=== PATIENT | male | born 1935 | race Caucasian/White ===

== ENCOUNTER 2016-11-13 20:54 | Emergency (ER) | payer MEDICARE ==
[2016-11-13] MEDS ORDERED: Acetaminophen TAB* 325 MG PO ONE (22:38)
[2016-11-13] MEDS ORDERED: Cyclobenzaprine TAB* 10 MG PO ONE (22:39)
[2016-11-13 23:54] VITALS: BP 148/70
--- NOTE | 2016-11-14 00:17 | ED ---
Ciaran Koch SooYoung, scribed for Silvia Will MD on 11/13/16 at 2230 . Complex/Multi-Sys Presentation - HPI Summary HPI Summary: An 81 y/o M presents to ED with c/o acute sore throat onset three days ago. Associated sx: dysphagia, hoarseness, stiff neck. Denies fever. States feeling well otherwise. Pt was mowing the lawn recently, denies fall or spraining his neck. He denies being around anyone ill recently. Ice/heat did not alleviate the neck stiffness. Pert PMHx: muscle spasms, neck pain. Has not taken OTC meds for sx. PCP is Dr. Santana, and Dr. Quiroga, cardio. He sees Dr. Quiroga for a "leaky valve". Pt takes baby aspirin daily. - History Of Current Complaint Chief Complaint: EDGeneral Time Seen by Provider: 11/13/16 22:25 Hx Obtained From: Patient, Family/Crm Specialist - Onset/Duration: Gradual Onset, Lasting Days - three days, Still Present Timing: Constant Severity Currently: Mild - rates pain as 0/10 Severity Initially: Mild Location: Pain At: - posterior neck Character: Dull Aggravating Factor(s): nothing Alleviating Factor(s): nothing Associated Signs And Symptoms: Positive: Other - pos: sore throat, stiff neck, dysphagia, hoarseness. Negative: Headache, Fever, Recent Trauma, Remote Trauma - Allergies/Home Medications Allergies/Adverse Reactions: Allergies Allergy/AdvReac Type Severity Reaction Status Date / Time No Known Allergies Allergy Verified 11/13/16 20:57 PMH/Surg Hx/FS Hx/Imm Hx Previously Healthy: No Endocrine/Hematology History: Denies: Hx Bone Marrow Disease, Hx Diabetes, Hx Sickle Cell Disease, Hx Thyroid Disease, Hx Anemia Cardiovascular History: Reports: Hx Angina, Hx Coronary Artery Disease, Hx Hypercholesterolemia, Hx Hypertension, Hx Myocardial Infarction, Hx Valvular Heart Disease, Other Cardiovascular Problems/Disorders - OPEN HEART SURGERY- REPAIR HEART VALVE, 2013, [place] Denies: Hx Pacemaker/ICD Respiratory History: Denies: Hx Asthma, Hx Sleep Apnea GI History: Denies: Hx Crohn's Disease, Hx Gastroesophageal Reflux Disease, Hx Irritable Bowel, Other GI Disorders History: Denies: Hx Kidney Infection, Hx Kidney Stones Musculoskeletal History: Reports: Hx Arthritis - BACK, Other Musculoskeletal History - BROKE RIGHT ANKLE- ABOUT 1 YEAR AGO, DR. 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 Hx Anesthesia Reactions: No Infectious Disease History: No Infectious Disease History: Denies: Traveled Outside the [place] in Last 30 Days - Family History Known Family History: Positive: Cardiac Disease - father - Social History Occupation: Retired Lives: With Family Alcohol Use: Rare Hx Substance Use: No Substance Use Type: Reports: None Hx Tobacco Use: Yes Smoking Status (MU): Former Smoker Review of Systems Negative: Fever Positive: Sore Throat - and hoarseness, Other - pos: dysphagia Cardiovascular: Negative Respiratory: Negative Gastrointestinal: Negative Positive: Other - pos: neck pain/stiffness Skin: Negative Neurological: Negative Psychological: Normal All Other Systems Reviewed And Are Negative: Yes Physical Exam Triage Information Reviewed: Yes Vital Signs On Initial Exam: Initial Vitals Temp Pulse Resp BP Pulse Ox 99.6 F 94 18 152/77 97 11/13/16 20:57 11/13/16 20:57 11/13/16 20:57 11/13/16 20:57 11/13/16 20:57 Vital Signs Reviewed: Yes Appearance: Positive: No Pain Distress, Well-Nourished, Ill-Appearing - mild Skin: Positive: Warm, Skin Color Reflects Adequate Perfusion Head/Face: Positive: Normal Head/Face Inspection Eyes: Positive: Conjunctiva Clear ENT: Positive: Hearing grossly normal, Pharynx normal, Muffled/hoarse voice - minimal. Negative: Pharyngeal erythema, Nasal congestion, Nasal drainage, TMs normal, TM bulging, Tonsillar swelling, Tonsillar exudate Neck: Positive: Supple, No Lymphadenopathy, Tenderness @ - bilat trapezius Respiratory/Lung Sounds: Positive: Clear to Auscultation, Breath Sounds Present Cardiovascular: Positive: RRR, Pulses are Symmetrical in both Upper and Lower Extremities. Negative: Murmur, Leg Edema Left, Leg Edema Right Musculoskeletal: Positive: Strength/ROM Intact Neurological: Positive: Sensory/Motor Intact, Alert, Oriented to Person Place, Time, Normal Gait, Speech Normal, Other - neg Kernig's and Brudzinski. Negative : Facial Droop, Focal Deficit @, Slurred Speech Psychiatric: Positive: Normal - Amber Coma Scale Coma Scale Total: 15 Diagnostics - Vital Signs Vital Signs Temp Pulse Resp BP Pulse Ox 11/13/16 20:57 99.6 F 94 18 152/77 97 - Laboratory Lab Results: Lab Results 11/13/16 Range/Units 22:36 Group A Strep Rapid Negative (Negative) Lab Statement: Any lab studies that have been ordered have been reviewed, and results considered in the medical decision making process. Re-Evaluation - Re-Evaluation First Eval Re-Evaluation Time: 23:00 Change: Improved - pain relieved with tylenol, cyclobenzaprine and soft cervical collar Complex Multi-Symp Course/Dx Course Of Treatment: Pt is an 81 y/o M presenting with acute sore throat onset three days ago. Associated sx: dysphagia, hoarseness, stiff neck. Denies fever. States feeling well otherwise. Pt mowed the lawn recently, denies fall or spraining his neck. He denies being around anyone ill recently. Ice/heat did not alleviate the neck stiffness. Pert PMHx: muscle spasms, neck pain. Has not taken OTC meds for sx. Pt takes baby aspirin daily. Pt given Flexeril, Tylenol in ED. Strep test is negative. Will be treated as cervical strain and advised to follow up if pain persists or worsens. - Diagnoses Differential Diagnoses/HQI/PQRI: Metabolic Abnormality, Other - strep, lymphadenopathy, meningitis Provider Diagnoses: Cervical strain, acute Discharge - Discharge Plan Condition: Stable Disposition: HOME Discharge Disposition Comment: SO at shift change to Dr. Giles. Prescriptions: Cyclobenzaprine TAB* [Flexeril 10 MG TAB*] 10 mg PO BID PRN #12 tab MDD 2 PRN Reason: Pain Patient Education Materials: Cervical Strain (ED), Pharyngitis (ED) Referrals: Guy Willams MD [Primary Care Provider] - 2 Days Additional Instructions: You were given one dose of the muscle relaxant cyclobenzaprine with some relief. You were also given tylenol 650mg orally at 10:30pm. You may take tylenol 650mg every four hours as needed for pain. You may take the cyclobenzaprine twice a day as needed for pain. A prescription for this was sent to the [facility] in [place]. You may pick it up tomorrow. You were also given a soft cervical collar to wear for your comfort. Follow up with your doctor, Dr. Willams in 1-2 days if no improvement. Your strep test was negative today. Return to the ER if you have any new or worsening symptoms. The documentation as recorded by the Ciaran marie SooYoung accurately reflects the service I personally performed and the decisions made by me, Silvia Will MD.
--- NOTE | 2016-11-14 01:51 | UC ---
Progress - Progress Note Progress Note: The physician geriatric personal care aide tab in [facility] sent me a message that pt's RX failed to transmit. I called [facility] and left a verbal for cyclobenzaprine 10mg po bid prn #12 with no refills at 0145am 11/14/16. Re-Evaluation - Re-Evaluation First Eval Re-Evaluation Time: 23:00 Change: Improved - pain relieved with tylenol, cyclobenzaprine and soft cervical collar
== END 2016-11-13 23:30 | disposition home or self-care (01) ==
LOC: ED 20:54
DX: S16.1XXA Strain of muscle, fascia and tendon at neck level, initial encounter (principal); X58.XXXA Exposure to other specified factors, initial encounter; Y93.9 Activity, unspecified; Y92.9 Unspecified place or not applicable; J02.9 Acute pharyngitis, unspecified; I25.119 Atherosclerotic heart disease of native coronary artery with unspecified angina pectoris; I10 Essential (primary) hypertension; E78.00 Pure hypercholesterolemia, unspecified; I25.2 Old myocardial infarction; Z95.2 Presence of prosthetic heart valve
CPT/HCPCS: 87651; 99282; A9270-GY

== ENCOUNTER 2019-04-24 08:38 | Inpatient (IN) | payer MEDICARE ==
--- OUTSIDE RECORDS SUMMARY | 2019-04-24 09:01 | XMS REPORT | Continuity of Care Document ---
:1935 External Reference #:[id number] Author Name Michelle Knutson PA-C Address [address] [place] [address] Care Team Providers Name Role Phone Guy Willams M.D. - Family Care Team Information Shear Tender Medicine Problems Active Problems Provider Date Impacted cerumen Preston York MD Onset: 05/01/2011 Cholesteatoma of external ear Preston York MD Onset: 05/01/2011 Social History Type Date Description Comments Sex Unknown Tobacco Use Start: Unknown End: Former Cigarette Smoker for 45 years Unknown Packs Daily 1 Tobacco Use Start: Unknown Never Smoked Cigars Tobacco Use Start: Unknown End: Former Pipe Smoker, Smoked 2 Unknown Pipes Daily Smokeless Tobacco Never Used Smokeless Tobacco ETOH Use Denies alcohol use Tobacco Use Start: Unknown End: Patient is a former smoker Unknown Allergies, Adverse Reactions, Alerts Description No Known Drug Allergies Medications Active Medications SIG Qnty Indications Ordering Provider Date Aspirin Enteric Coated once daily Guy Willams 02/28/2005 81mg Joleen Evans Calcium + D once daily Self Lisinopril 1 by mouth every Guy Willams 2.5mg Tablets erich Evans M.D. Atorvastatin Calcium Jonathan N.PShiar Plummer 20mg Tablets Metoprolol Tartrate Preston Quiroga 50mg M.DKavitha Tablets Immunizations CPT Code Status Date Vaccine Lot # [id number] Given 03/22/2014 Influenza Virus Vaccine, 3 Years Of Age And Above, Intramuscular 36632 Given Unknown Prevnar 13 For Intramuscular Use Vital Signs Date Vital Result Comment 03/07/2019 8:32am Weight 174.00 lb Weight 78.926 kg Height 67 inches 5'7" Height in cm's 170.2 cm BMI (Body Mass Index) 27.2 kg/m2 09/03/2018 8:44am Weight 174.00 lb Weight 78.926 kg Height 67 inches 5'7" Height in cm's 170.2 cm BMI (Body Mass Index) 27.2 kg/m2 Results Description No Information Available Procedures Date Code Description Status 03/07/2019 75219 Debridement Of Mastoid Cavity, Simple Completed Medical Devices Description No Information Available Encounters Description No Information Available Assessments Date Code Description Provider 03/07/2019 H61.23 Impacted cerumen, bilateral Michelle Knutson PA-C Plan of Treatment Future Appointment(s):09/06/2019 8:30 am - Michelle Knutson PA-C at [place],After - KURTIS [id number] Impacted cerumen, bilateral Functional Status Description No Information Available Mental Status Description No Information Available Referrals Description No Information Available
--- NOTE | 2019-04-24 09:15 | ED ---
Complex/Multi-Sys Presentation - HPI Summary HPI Summary: Pt is an 83 yr old male [facility] c/o coughing and fever beginning 2 days [facility] OILER. 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 He rates his current pain severity a 0/10. No aggravating or alleviating factors noted. He also reports congestion, body aches, rhinorrhea, and body ache but denies sore throat, vomiting, diarrhea, dysuria, or rash. - History Of Current Complaint Chief Complaint: EDFluSymptoms Time Seen by Provider: 04/24/19 08:53 Hx Obtained From: Patient Onset/Duration: Sudden Onset, Lasting Days, Still Present Timing: Constant, Days Severity Currently: None Severity Initially: Mild Aggravating Factor(s): nothing Alleviating Factor(s): nothing Associated Signs And Symptoms: Positive: Cough, Fever, Other - pos - body aches , congestion, rhinnorhea - Allergies/Home Medications Allergies/Adverse Reactions: Allergies Allergy/AdvReac Type Severity Reaction Status Date / Time No Known Allergies Allergy Verified 04/24/19 10:22 Home Medications: Home Medications Aspirin EC TAB* [Ecotrin EC Low Dose 81 MG*] 81 mg PO DAILY 04/24/19 [History Confirmed 04/24/19] Atorvastatin* [Lipitor*] 40 mg PO QPM 04/24/19 [History Confirmed 04/24/19] PMH/Surg Hx/FS Hx/Imm Hx Endocrine/Hematology History: Denies: Hx Bone Marrow Disease, Hx Diabetes, Hx Sickle Cell Disease, Hx Thyroid Disease, Hx Anemia Cardiovascular History: Reports: Hx Angina, Hx Coronary Artery Disease, Hx Hypercholesterolemia, Hx Hypertension, Hx Myocardial Infarction, Hx Valvular Heart Disease, Other Cardiovascular Problems/Disorders - OPEN HEART SURGERY- REPAIR HEART VALVE, 2013, [place] Denies: Hx Pacemaker/ICD Respiratory History: Denies: Hx Asthma, Hx Sleep Apnea GI History: Denies: Hx Crohn's Disease, Hx Gastroesophageal Reflux Disease, Hx Irritable Bowel, Other GI Disorders History: Denies: Hx Kidney Infection, Hx Kidney Stones Musculoskeletal History: Reports: Hx Arthritis - BACK, Other Musculoskeletal History - BROKE RIGHT ANKLE- ABOUT 1 YEAR AGO, DR. 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 Negative: Sore Throat Positive: Cough Negative: Vomiting, Diarrhea Negative: dysuria Musculoskeletal: Other - pos - body ache Negative: Rash All Other Systems Reviewed And Are Negative: Yes Physical Exam - Summary Physical Exam Summary: Constitutional: Well-developed, Well-nourished, Alert. (-) Distressed Skin: Warm, Dry HENT: Normocephalic; Atraumatic Eyes: Conjunctiva normal Neck: Musculoskeletal ROM normal neck. (-) JVD, (-) Stridor, (-) Tracheal deviation Cardio: Rhythm regular, rate normal, Heart sounds normal; Intact distal pulses; Radial pulses are 2+ and symmetric. (-) Murmur Pulmonary/Chest wall: Effort normal. (-) Respiratory distress, (-) Wheezes, (-) Rales Abd: Soft, (-) tenderness, (-) Distension, (-) Guarding, (-) Rebound Musculoskeletal: (-) Edema Lymph: (-) Cervical adenopathy Neuro: Alert, Oriented x3 Psych: Mood and affect Normal Triage Information Reviewed: Yes Vital Signs On Initial Exam: Initial Vitals Temp Pulse Resp BP Pulse Ox 100.9 F 95 16 157/69 94 04/24/19 08:48 04/24/19 08:48 04/24/19 08:48 04/24/19 08:48 04/24/19 08:48 Vital Signs Reviewed: Yes Procedures - Sedation Patient Received Moderate/Deep Sedation with Procedure: No Diagnostics - Vital Signs Vital Signs Temp Pulse Resp BP Pulse Ox 04/24/19 09:03 91 156/71 91 04/24/19 09:02 93 92 04/24/19 08:48 100.9 F 95 16 157/69 94 - Laboratory Result Diagrams: 04/24/19 09:36 04/24/19 09:36 Lab Statement: Any lab studies that have been ordered have been reviewed, and results considered in the medical decision making process. Complex Multi-Symp Course/Dx Course Of Treatment: Patient is here with generalized weakness requiring a wheelchair to be taken back to the room which is atypical for him. Patient is noted to be borderline hypoxemic upon arrival with a O2 saturation 91%. Patient had blood tests performed showed no leukocytosis. Patient has a mildly elevated lactate of 2.1. Patient's culture sent. Patient negative chest x- ray. Patient was positive for influenza. Given patient's age, generalized weakness, borderline hypoxemia, patient was admitted to the internal medicine service after receiving Tamiflu here. - Diagnoses Provider Diagnoses: Influenza, Generalized weakness, Hypoxia - Physician Notifications Discussed Care Of Patient With: Cari Alcaraz - Dr. Alcaraz will admit the pt to [facility] Time Discussed With Above Provider: 10:27 Instructed by Provider To: Admit As Inpatient Discharge ED - Sign-Out/Discharge Documenting (check all that apply): Patient Departure - admit - Discharge Plan Condition: Stable Disposition: ADMITTED TO [facility] Referrals: Guy Willams MD [Primary Care Provider] - - Billing Disposition and Condition Condition: STABLE Disposition: Admitted to [facility] - Attestation Statements Document Initiated by Jose: Yes Documenting Scribe: Mathieu Angeles Provider For Whom Jose is Documenting (Include Credential): Wilton Naranjo MD Scribe Attestation: Mathieu Koch, scribed for Wilton Naranjo MD on 04/24/19 at 1038. Scribe Documentation Reviewed: Yes Provider Attestation: The documentation as recorded by the Mathieu marie accurately reflects the service I personally performed and the decisions made by , Wilton Naranjo MD Status of Scribe Document: Viewed
[2019-04-24] MEDS ORDERED: Acetaminophen TAB* 325 MG PO ONE (09:18)
[2019-04-24 09:38] LABS: Influenza A Molecular POSITIVE (Negative)
[2019-04-24] MEDS ORDERED: Oseltamivir CAP* 75 MG CAP PO ONE (09:44)
[2019-04-24 09:51] LABS: ABS Lymphocytes 0.3 10^3/ul (1.0-4.8); ABS Monocytes 0.4 10^3/ul (0-0.8); ABS Neutrophils 4.9 10^3/ul (1.5-7.7); Hematocrit 43 % (42-52); Hemoglobin 14.6 g/dL (14.0-18.0); Lymphocyte % 4.7 %; Mean Corpuscular HGB Conc 34 g/dL (31-36); Mean Corpuscular Hemoglobin 30 pg (27-31); Mean Corpuscular Volume 89 fL (80-94); Mean Platelet Volume 7.8 fL (7.4-10.4); Platelet Count 117 10^3/uL (150-450); Red Cell Distribution Width 13 % (10-15); White Blood Count 5.6 10^3/uL (3.5-10.8)
[2019-04-24 10:07] LABS: Albumin 3.8 g/dL (3.2-5.2); Albumin/Globulin Ratio 1.3 (1-3); BUN/Creatinine Ratio 11.8 (8-20); C Reactive Protein 16.08 mg/L (<8.01); Calcium 9.4 mg/dL (8.6-10.3); EGFR African American 60.6 (>60); Globulin 2.9 g/dL (2-4); Potassium 4.5 mmol/L (3.5-5.0); Total Bilirubin 1.1 mg/dL (0.2-1.0); Total Protein 6.7 g/dL (6.4-8.9)
[2019-04-24] MEDS ORDERED: Ibuprofen TAB* 600 MG PO ONE (10:39)
[2019-04-24] MEDS ORDERED: NS 0.9% 1000 ML** 1,000 ML IV ONE (10:39)
[2019-04-24] MEDS ORDERED: NS 0.9% IV ONE (11:17)
--- NOTE | 2019-04-24 11:28 | PN ---
Sepsis Event Evaluation Date of Evaluation: 04/24/19 Current Stage of Sepsis: Severe Sepsis Vital Signs - Last 12 Hours: Vital Signs - 12 hr Temp Pulse Resp BP Pulse Ox 04/24/19 11:17 99.8 F 04/24/19 11:03 90 113/60 91 04/24/19 11:00 88 91 04/24/19 10:38 101.9 F 04/24/19 10:35 99 128/68 92 04/24/19 10:33 99 79/60 93 04/24/19 10:03 94 120/65 91 04/24/19 10:00 93 92 04/24/19 09:25 100.7 F 04/24/19 09:03 91 156/71 91 04/24/19 09:02 93 92 04/24/19 08:48 100.9 F 95 16 157/69 94 Lactic Acid: 04/24/19 09:37 Lactic Acid 2.1 H* - Cardiopulmonary Exam Capillary Refill: Immediate Respiratory: Symmetrical Chest Expansion and Respiratory Effort, Clear to Auscultation Cardiovascular: RRR - Normal S1 and S2, +SM - Peripheral Pulse Exam Radial Pulses: Bilateral Normal - Skin Exam Skin Exam: Normal Turgor - Amber Coma Scale Best Eye Response: 4 - Spontaneous Best Motor Response: 6 - Obeys Commands Best Verbal Response: 5 - Oriented Coma Scale Total: 15 Assess/Plan/Problems-Billing Assessment: Mr Farah is an 83yo M with PMH of CAD s/p PR s/p stent, s/p 1 vessel CABG and Mitral valve repair in 2013 at [facility], with post op Afib; 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 Continue current management with IVF, Tamiflu.
--- NOTE | 2019-04-24 13:02 | ADMNOTE ---
Subjective Date of Service: 04/24/19 Interval History: PCP: Dr Willams Spouting Installer: Dr Quiroga CC: "I'm weak" HPI: Mr Farah is an 83yo M with PMH of Afib, mitral regurgitation, CAD, HTN, HLD , who presented to ED with c/o weakness. Patient states he started feeling ill a couple day ago, with bodyaches, malaise , cough and rhinorrhea. He initially thought his symptoms were secondary to recent medication changes, but he also developed fever, so decided to come to ED. He denies chest pain, palpitations, N/V/D/. Family History: Findings - Mother of heart attack and father in a car accident Social History: Findings - Patient was a smoker age 9 to 50, 1 pack per day, quit when he had a heart attack. Denies alcohol or drug use. 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 Objective Active Medications: Acetaminophen (Tylenol Tab*) 650 mg PO Q6H PRN PRN Reason: MILD PAIN or TEMP > 100.4 Aspirin (Aspirin Ec Tab*) 81 mg PO DAILY [facility] Atorvastatin Calcium (Lipitor*) 40 mg PO QPM [facility] Heparin Sodium (Porcine) (Heparin Vial(*)) 5,000 units SUBCUT Q8HR [facility] Sodium Chloride (Ns 0.9% 1000 Ml) 1,000 mls @ 100 mls/hr IV PER RATE [facility] Metoprolol Tartrate (Lopressor Tab*) 50 mg PO DAILY [facility] Oseltamivir Phosphate (Tamiflu Susp 30 Mg Dose*) 30 mg PO BID [place] Stop: 04/28/19 21:01 Vital Signs - 8 hr 04/24/19 04/24/19 04/24/19 08:48 09:02 09:03 Temperature 100.9 F Pulse Rate 95 93 91 Respiratory 16 Rate Blood Pressure 157/69 156/71 (mmHg) O2 Sat by Pulse 94 92 91 Oximetry 04/24/19 04/24/19 04/24/19 09:25 10:00 10:03 Temperature 100.7 F Pulse Rate 93 94 Respiratory Rate Blood Pressure 120/65 (mmHg) O2 Sat by Pulse 92 91 Oximetry 04/24/19 04/24/19 04/24/19 10:33 10:35 10:38 Temperature 101.9 F Pulse Rate 99 99 Respiratory Rate Blood Pressure 79/60 128/68 (mmHg) O2 Sat by Pulse 93 92 Oximetry 04/24/19 04/24/19 04/24/19 11:00 11:03 11:17 Temperature 99.8 F Pulse Rate 88 90 Respiratory Rate Blood Pressure 113/60 (mmHg) O2 Sat by Pulse 91 91 Oximetry 04/24/19 04/24/19 04/24/19 11:33 12:00 12:03 Temperature 99.8 F Pulse Rate 81 79 80 Respiratory 20 Rate Blood Pressure 114/55 115/52 (mmHg) O2 Sat by Pulse 93 89 89 Oximetry Oxygen Devices in Use Now: None Appearance: Pleasant elderly gentleman lying in bed in NAD, appears to be very tired Eyes: No Scleral Icterus Ears/Nose/Mouth/Throat: Mucous Membranes Moist Neck: Trachea Midline Respiratory: Symmetrical Chest Expansion and Respiratory Effort, Clear to Auscultation Cardiovascular: RRR - Normal S1 and S2, +SM Abdominal: NL Sounds; No Tenderness; No Distention Extremities: No Edema Neurological: Alert and Oriented x 3, NL Muscle Strength and Tone Result Diagrams: 04/24/19 09:36 04/24/19 09:36 Additional Lab and Data: Laboratory Tests 04/24/19 04/24/19 04/24/19 09:06 09:36 09:36 WBC 5.6 Hgb 14.6 Hct 43 Plt Count 117 L Sodium 136 Potassium 4.5 Chloride 100 L Carbon Dioxide 27 BUN 16 Creatinine 1.36 H Glucose 179 H Lactic Acid Calcium 9.4 Total Bilirubin 1.10 H AST 19 ALT 19 Alkaline Phosphatase 86 Total Creatine Kinase 260 H C-Reactive Protein 16.08 H Influenza A (Rapid) Positive A 04/24/19 09:37 WBC Hgb Hct Plt Count Sodium Potassium Chloride Carbon Dioxide BUN Creatinine Glucose Lactic Acid 2.1 H* Calcium Total Bilirubin AST ALT Alkaline Phosphatase Total Creatine Kinase C-Reactive Protein Influenza A (Rapid) Diagnostic Imaging: CHEST PA & LAT 2 VWS IMPRESSION: HYPERINFLATION, CONSISTENT WITH COPD. NO ACTIVE CARDIOPULMONARY DISEASE. 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 - Patient Problems (1) Severe sepsis Comment: - Met sepsis criteria with tachycardia, fever, and mild lactic acidosis. - Received IVF, will check serial LA. - Antibiotics not indicated as source is viral (Flu A). (2) Influenza A Comment: - Continue Tamiflu and supportive care. (3) Thrombocytopenia Comment: - Secondary to Influenza - monitor. (4) CAD (coronary artery disease) Comment: - Stable - continue Aspirin, Atorvastatin, and Metoprolol. (5) HTN (hypertension) Comment: - Controlled - continue Metoprolol and hold Lisinopril. (6) DVT prophylaxis Comment: - SQ heparin (7) Full code status Comment: - Patient wishes to d/w his before signing MOLST to be DNR. He remains Full code at this time. Status and Disposition: Approximately 50 minutes were spent with patient's interview, medical records review, and physical examination; more than half of this time was spent face-to- face with patient and coordination of care.
[2019-04-24] MEDS: NS 0.9% 1000 ML** 1,000 ML IV SCH (13:12)
[2019-04-24] MEDS: Heparin VIAL(*) 5000 UNITS/ML VIAL (FIVE THOUSAND) SUBCUT SCH ×2 (13:12→22:05)
[2019-04-24] MEDS: Atorvastatin* 40 MG TAB PO SCH (17:20)
[2019-04-24] MEDS: Oseltamivir SUSP 30 MG dose* 30 MG/5 ML ORAL.SYRIN PO SCH (22:05)
[2019-04-24] MEDS: Acetaminophen TAB* 325 MG PO PRN (23:30)
[2019-04-25] MEDS: NS 0.9% 1000 ML** 1,000 ML IV SCH (01:48)
[2019-04-25 04:47] LABS: Hematocrit 39 % (42-52); Hemoglobin 13.4 g/dL (14.0-18.0); Mean Corpuscular HGB Conc 34 g/dL (31-36); Mean Corpuscular Hemoglobin 31 pg (27-31); Mean Corpuscular Volume 90 fL (80-94); Mean Platelet Volume 7.7 fL (7.4-10.4); Platelet Count 100 10^3/uL (150-450); Red Blood Count 4.35 10^6 /uL (4.18-5.48); Red Cell Distribution Width 13 % (10-15); White Blood Count 4.4 10^3/uL (3.5-10.8)
[2019-04-25 05:03] LABS: BUN/Creatinine Ratio 12.7 (8-20); Calcium 8.2 mg/dL (8.6-10.3); EGFR African American 71.3 (>60); Potassium 4.2 mmol/L (3.5-5.0)
[2019-04-25 05:10] LABS: ABS Lymphocytes 0.5 10^3/ul (1.0-4.8); ABS Monocytes 0.4 10^3/ul (0-0.8); ABS Neutrophils 3.4 10^3/ul (1.5-7.7); Eosinophil % 0.1 %; Lymphocyte % 12.4 %; Nucleated Red Blood Cells % 0.1
[2019-04-25] MEDS: Heparin VIAL(*) 5000 UNITS/ML VIAL (FIVE THOUSAND) SUBCUT SCH ×3 (06:06→21:04)
[2019-04-25 06:41] LABS: Urine Appearance Clear; Urine Bilirubin Negative (Negative); Urine Blood 2+ (Negative); Urine Color Yellow; Urine Glucose Negative (Negative); Urine Ketones 1+ (Negative); Urine Nitrite Negative (Negative); Urine Protein 2+(100 mg/dL) (Negative); Urine Specific Gravity 1.018 (1.010-1.030); Urine Urobilinogen Negative (Negative)
[2019-04-25 06:47] LABS: Urine Bacteria Absent (Absent); Urine Red Blood Cell Trace(0-2/hpf) (Absent); Urine White Blood Cell Trace(0-5/hpf) (Absent)
[2019-04-25] MEDS: Metoprolol Tartrate TAB* 50 mg PO SCH (09:14)
[2019-04-25] MEDS: Aspirin EC TAB* 81 MG TAB.EC PO SCH (09:14)
[2019-04-25] MEDS: Oseltamivir SUSP 30 MG dose* 30 MG/5 ML ORAL.SYRIN PO SCH (09:14)
[2019-04-25] MEDS: Acetaminophen TAB* 325 MG PO PRN (13:29)
--- NOTE | 2019-04-25 15:21 | PN ---
Subjective Date of Service: 04/25/19 Interval History: Patient is feeling better. Patient states that his breathing has improved. Patient states that he no longer has subjective fevers or muscle aches. Patient denies N/V, abdominal pain, diarrhea, or other pain. When ambulating around the unit, patient became very SOB and desaturated down to 86%. Family History: Findings - Mother of heart attack and father in a car accident Social History: Findings - Patient was a smoker age 9 to 50, 1 pack per day, quit when he had a heart attack. Denies alcohol or drug use. 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%, HTN, HLD, CKD stage 3 Objective Active Medications: Acetaminophen (Tylenol Tab*) 650 mg PO Q6H PRN PRN Reason: MILD PAIN or TEMP > 100.4 Last Admin: 04/25/19 13:29 Dose: 650 mg Aspirin (Aspirin Ec Tab*) 81 mg PO DAILY [facility] Last Admin: 04/25/19 09:14 Dose: 81 mg Atorvastatin Calcium (Lipitor*) 40 mg PO QPM [facility] Last Admin: 04/24/19 17:20 Dose: 40 mg Heparin Sodium (Porcine) (Heparin Vial(*)) 5,000 units SUBCUT Q8HR [facility] Last Admin: 04/25/19 13:29 Dose: 5,000 units Metoprolol Tartrate (Lopressor Tab*) 50 mg PO DAILY [facility] Last Admin: 04/25/19 09:14 Dose: 50 mg Oseltamivir Phosphate (Tamiflu Cap*) 30 mg PO BID [facility] Stop: 04/28/19 21:01 Vital Signs - 8 hr 04/25/19 04/25/19 04/25/19 08:00 09:35 11:15 Temperature 101.9 F Pulse Rate 87 Respiratory 20 Rate Blood Pressure 152/74 (mmHg) O2 Sat by Pulse 95 86 92 Oximetry Oxygen Devices in Use Now: Nasal Cannula Appearance: Patient is an 83yo male who appears stated age and is sitting in the bed in [facility]. Eyes: No Scleral Icterus, PERRLA Ears/Nose/Mouth/Throat: NL Teeth, Lips, Gums, Clear Oropharnyx, Mucous Membranes Moist Neck: NL Appearance and Movements; NL JVP, Trachea Midline Respiratory: Symmetrical Chest Expansion and Respiratory Effort, - - Slight Rales in B/L Lower lobes. Cardiovascular: NL Sounds; No Murmurs; No JVD, RRR, No Edema Abdominal: NL Sounds; No Tenderness; No Distention, No Hepatosplenomegaly Lymphatic: No Cervical Adenopathy Extremities: No Edema, No Clubbing, Cyanosis Skin: No Rash or Ulcers, No Nodules or Sclerosis Neurological: Alert and Oriented x 3, NL Sensation, NL Gait, NL Muscle Strength and Tone, - - CN II-XII intact. Result Diagrams: 04/25/19 04:39 04/25/19 04:39 Additional Lab and Data: Laboratory Tests 04/24/19 04/24/19 04/24/19 09:06 09:36 09:36 WBC 5.6 Hgb 14.6 Hct 43 Plt Count 117 L Sodium 136 Potassium 4.5 Chloride 100 L Carbon Dioxide 27 BUN 16 Creatinine 1.36 H Glucose 179 H Lactic Acid Calcium 9.4 Total Bilirubin 1.10 H AST 19 ALT 19 Alkaline Phosphatase 86 Total Creatine Kinase 260 H C-Reactive Protein 16.08 H Influenza A (Rapid) Positive A 04/24/19 09:37 WBC Hgb Hct Plt Count Sodium Potassium Chloride Carbon Dioxide BUN Creatinine Glucose Lactic Acid 2.1 H* Calcium Total Bilirubin AST ALT Alkaline Phosphatase Total Creatine Kinase C-Reactive Protein Influenza A (Rapid) Microbiology and Other Data: Microbiology 04/24/19 09:36 Aerobic Blood Culture - Preliminary Blood Venous No Growth Day 1 Anaerobic Blood Culture - Preliminary No Growth Day 1 04/24/19 09:41 Aerobic Blood Culture - Preliminary Blood Venous No Growth Day 1 Anaerobic Blood Culture - Preliminary No Growth Day 1 Diagnostic Imaging: CHEST PA & LAT 2 VWS IMPRESSION: HYPERINFLATION, CONSISTENT WITH COPD. NO ACTIVE CARDIOPULMONARY DISEASE. 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 Continue current management with IVF, Tamiflu. - Patient Problems (1) Acute respiratory failure with hypoxia Current Visit: Yes Status: Acute Code(s): J96.01 - ACUTE RESPIRATORY FAILURE WITH HYPOXIA SNOMED Code(s): 03036703 Comment: - Due to Infuenza A - Improving - Check ambulatory saturations tomorrow. (2) Influenza A Current Visit: Yes Status: Acute Code(s): J10.1 - FLU DUE TO OTH IDENT INFLUENZA VIRUS W OTH RESP MANIFEST SNOMED Code(s): 617057327 Comment: - Continue Tamiflu and supportive care. (3) CAD (coronary artery disease) Current Visit: Yes Status: Acute Code(s): I25.10 - ATHSCL HEART DISEASE OF [place] CORONARY ARTERY W/O ANG PCTRS SNOMED Code(s): 69768106 Comment: - Stable - Continue Aspirin, Atorvastatin, and Metoprolol. (4) Severe sepsis Current Visit: Yes Status: Acute Code(s): A41.9 - SEPSIS, UNSPECIFIED ORGANISM; R65.20 - SEVERE SEPSIS WITHOUT SEPTIC SHOCK SNOMED Code(s): 02236924 Comment: - Met sepsis criteria with tachycardia, fever, and mild lactic acidosis. - Received IVF, LA normalized - Antibiotics not indicated as source is viral (Flu A). (5) HTN (hypertension) Current Visit: Yes Status: Acute Code(s): I10 - ESSENTIAL (PRIMARY) HYPERTENSION SNOMED Code(s): 23067609 Comment: - Controlled - Continue Metoprolol and resume Lisinopril. (6) Thrombocytopenia Current Visit: Yes Status: Acute Code(s): D69.6 - THROMBOCYTOPENIA, UNSPECIFIED SNOMED Code(s): 640032218 Comment: - Secondary to Influenza - Monitor. (7) Aortic stenosis Current Visit: No Status: Chronic Code(s): I35.0 - NONRHEUMATIC AORTIC ( VALVE) STENOSIS SNOMED Code(s): 57482355 Comment: - Not symptomatic (8) Mitral regurgitation Current Visit: No Status: Chronic Comment: - S/P repair (9) DVT prophylaxis Current Visit: Yes Status: Acute Code(s): Z29.9 - ENCOUNTER FOR PROPHYLACTIC MEASURES, UNSPECIFIED SNOMED Code(s): 393368392 Comment: - SQ heparin (10) Full code status Current Visit: Yes Status: Acute Code(s): Z78.9 - OTHER SPECIFIED HEALTH STATUS SNOMED Code(s): 466425282 Status and Disposition: Observation, Likely D/C tomorrow
[2019-04-25] MEDS: Atorvastatin* 40 MG TAB PO SCH (16:53)
[2019-04-25] MEDS: Oseltamivir CAP* 30 MG CAP PO SCH (21:04)
[2019-04-26] MEDS: Heparin VIAL(*) 5000 UNITS/ML VIAL (FIVE THOUSAND) SUBCUT SCH ×2 (05:37→13:24)
[2019-04-26] MEDS: Acetaminophen TAB* 325 MG PO PRN (08:14)
[2019-04-26] MEDS: Metoprolol Tartrate TAB* 50 mg PO SCH (08:15)
[2019-04-26] MEDS: Aspirin EC TAB* 81 MG TAB.EC PO SCH (08:15)
[2019-04-26] MEDS: Oseltamivir CAP* 30 MG CAP PO SCH (08:15)
[2019-04-26 13:32] VITALS: BP 150/70
--- NOTE | 2019-04-26 23:12 | DS ---
CC: Dr. Guy Willams * DISCHARGE SUMMARY: DATE OF ADMISSION: 04/24/19 DATE OF DISCHARGE: 04/26/19 PRIMARY CARE PHYSICIAN: Dr. Guy Willams. FINAL DISCHARGE DIAGNOSES: 1. Influenza A upper respiratory tract infection. 2. Generalized weakness secondary to influenza A. 3. Chronic obstructive pulmonary disease. 4. Coronary artery disease. 5. Hypertension. HOSPITAL COURSE: The patient presented to [facility] on 04/24/19 with generalized complaint of weakness and past medical history of atrial fibrillation, coronary artery disease, hypertension, hyperlipidemia, who started feeling weakness a couple of days prior to presentation associated with fever, malaise, and chills. He was admitted to the medical service for severe sepsis by criteria of fever, lactic acidosis, and tachycardia, and was diagnosed with viral influenza A. He was started on Tamiflu 30 mg p.o. b.i.d. adjusted for his renal function, supportive care, and was seen and evaluated by me today 2 days after presentation. He has been fever free for 24 hours, requiring no oxygen supplementation, and his lactic acid was corrected down to 0.8. Therefore, he was seen and evaluated, and from medical point of view, he was deemed stable for discharge home today in stable condition. PHYSICAL EXAMINATION: Vital Signs: Temperature 98.2, pulse 64, respirations 20 , sating 95%, and blood pressure 150/70. General: He is awake, alert, oriented , pleasant, in no distress. Head and Neck: Normocephalic, atraumatic. Supple. Lungs: Clear to auscultation. He does have positive systolic murmur. Abdomen: Positive bowel sounds. Soft, nontender, nondistended. 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 DIAGNOSTIC STUDIES/LAB DATA: Urine blood culture is negative for 2 days. CBC is significant for low normal platelets 117-100. Chemistry was significant for presentation lactic acid of 2.1. Otherwise, remaining unremarkable. Serology, influenza A positive. He had a chest x-ray done on presentation, which shows COPD changes. No acute infiltrate. DISCHARGE MEDICATIONS: The patient will be released on: 1. Tamiflu 30 mg b.i.d. for 4 more days. 2. Aspirin 81 daily. 3. Lipitor 40 at night. 4. Metoprolol 50 mg daily. 5. Lisinopril 5 mg daily. 6. Tylenol p.r.n. DISCHARGE RECOMMENDATIONS: Follow up with primary care in 1 to 3 days. Take home medications as prescribed. Until you are symptom free and no cough or congestion, avoid close contact with immunocompromised such as infant, , and he was advised to have his call her primary for prophylaxis treatment. DISCHARGE CONDITION: Stable. DISCHARGE DISPOSITION: Home. [id number]/[facility] #: [id number] ABILIO
== END 2019-04-26 16:10 | disposition home or self-care (01) | DRG 871 ==
LOC: ED 08:38 → MEDTELE 11:09 → OBSVTOIN 04-25 11:00
PROVIDERS: ADMIT Internal Medicine; ATTEND Internal Medicine
DX: A41.9 Sepsis, unspecified organism (principal); J96.01 Acute respiratory failure with hypoxia; E87.2 Acidosis; J44.0 Chronic obstructive pulmonary disease with (acute) lower respiratory infection; J09.X2 Influenza due to identified novel influenza A virus with other respiratory manifestations; D69.6 Thrombocytopenia, unspecified; N18.3 Chronic kidney disease, stage 3 (moderate); R65.20 Severe sepsis without septic shock; I48.91 Unspecified atrial fibrillation; I25.10 Atherosclerotic heart disease of native coronary artery without angina pectoris; I12.9 Hypertensive chronic kidney disease with stage 1 through stage 4 chronic kidney disease, or unspecified chronic kidney disease; E78.5 Hyperlipidemia, unspecified; I25.5 Ischemic cardiomyopathy; I34.0 Nonrheumatic mitral (valve) insufficiency; Z82.49 Family history of ischemic heart disease and other diseases of the circulatory system; Z87.891 Personal history of nicotine dependence; Z95.1 Presence of aortocoronary bypass graft; Z95.5 Presence of coronary angioplasty implant and graft; Z79.01 Long term (current) use of anticoagulants; Z79.1 Long term (current) use of non-steroidal anti-inflammatories (NSAID); Z79.82 Long term (current) use of aspirin; Z79.899 Other long term (current) drug therapy
CPT/HCPCS: 36415; 71046; 80048; 80053; 81003; 81015; 82550; 83605; 85025; 85060; 86140; 87040; 87086; 99284; A9270-GY; G0378; J1644